=== PATIENT | male | born 1985 | race Caucasian/White ===

== ENCOUNTER 2019-01-23 15:52 | Emergency (ER) | payer SELFPAY ==
[2019-01-23 16:12] VITALS: BP 134/89
[2019-01-23] MEDS: Azithromycin TAB* 250 MG PO ONE (16:50)
--- NOTE | 2019-01-23 18:36 | UC ---
Complaint Male HPI - HPI Summary HPI Summary: ABOUT 1 WEEK OF PAIN IN HIS BLADDER AND BURNING WITH URINATION. DENIES FEVER, FREQUENCY, BACK PAIN, NAUSEA. DENIES PENILE DISCHARGE. STATES HIS EX- GIRLFRIEND CALLED HIM JUST PRIOR TO ONSET OF THE SYMPTOMS AND INFORMED HIM THAT SHE HAD BEEN DIAGNOSED WITH CHLAMYDIA. LAST SEXUAL CONTACT WITH HER WAS ABOUT 2 MONTHS AGO. - History of Current Complaint Chief Complaint: UCGU Stated Complaint: BLADDER PAIN Time Seen by Provider: 01/23/19 16:36 Hx Obtained From: Patient Onset/Duration: Gradual Onset, Lasting Days, Still Present Severity Initially: Moderate Severity Currently: Moderate Pain Intensity: 3 Pain Scale Used: 0-10 Numeric Location: Suprapubic Character: Sharp Aggravating Factor(s): Nothing Alleviating Factor(s): Nothing Associated Signs And Symptoms: Positive: Dysuria. Negative: Fever, Nausea, Penile Swelling, Penile Discharge - Allergies/Home Medications Allergies/Adverse Reactions: Allergies Allergy/AdvReac Type Severity Reaction Status Date / Time No Known Allergies Allergy Verified 01/23/19 16:12 PMH/Surg Hx/FS Hx/Imm Hx Previously Healthy: Yes - Surgical History Surgical History: Yes Surgery Procedure, Year, and Place: [id number] - Family History Known Family History: Positive: Non-Contributory - Social History Alcohol Use: None Substance Use Type: None Smoking Status (MU): Never Smoked Tobacco Review of Systems All Other Systems Reviewed And Are Negative: Yes Constitutional: Positive: Negative Skin: Positive: Negative Respiratory: Positive: Negative Cardiovascular: Positive: Negative Gastrointestinal: Positive: Negative Genitourinary: Positive: Dysuria, Vaginal/Penile Burning. Negative: Frequency, Urgency, Vaginal/Penile Discharge Physical Exam Triage Information Reviewed: Yes Appearance: Well-Appearing, No Pain Distress, Well-Nourished Vital Signs: Initial Vital Signs Temp 98.3 F 01/23/19 16:07 Pulse 59 01/23/19 16:07 Resp 16 01/23/19 16:07 BP 134/89 01/23/19 16:07 Pulse Ox 99 01/23/19 16:07 Laboratory Tests 01/23/19 16:18 POC Urine Color Yellow POC Urine Clarity Clear POC Urine pH 7.0 POC Ur Specif [place] 1.025 POC Urine Protein Negative POC Ur Glucose (UA) Negative POC Urine Ketones Negative POC Urine Blood Negative POC Urine Nitrite Negative POC Urine Bilirubin Negative POC Urine Urobilinogen 1.0 POC U Leukocyte Esteras Negative Eyes: Positive: Conjunctiva Clear ENT: Positive: Hearing grossly normal Neck: Positive: Supple Respiratory: Positive: No respiratory distress, No accessory muscle use Cardiovascular: Positive: Pulses Normal Abdomen Description: Positive: Soft Male Genital Exam: Positive: Other - DECLINED Musculoskeletal: Positive: No Edema Neurological: Positive: Alert Psychological: Positive: Age Appropriate Behavior Skin: Negative: Rashes Complaint Male Course/Dx - Course Course Of Treatment: PATIENT STATES HIS EX-GIRLFRIEND WAS DIAGNOSED WITH CHLAMYDIA. IS HERE FOR TESTING AND TREATMENT. URINE SENT FOR TESTING FOR GONORRHEA/CHLAMYDIA. PATIENT AGREES TO TREATMENT FOR CHLAMYDIA BUT DECLINES TREATMENT FOR GONORRHEA TODAY. 1 G OF AZITHROMYCIN AND SENT TO PHARMACY. URGENT RX PROVIDED. PATIENT DECLINED FURTHER STI TESTING DUE TO LACK OF INSURANCE. ADVISED TO GO TO [facility] FOR MORE COMPLETE TESTING. - Differential Dx/Diagnosis Provider Diagnosis: STD exposure Discharge ED - Sign-Out/Discharge Documenting (check all that apply): Patient Departure All imaging exams completed and their final reports reviewed: No Studies - Discharge Plan Condition: Stable Disposition: HOME Prescriptions: Azithromycin 1,000 mg PO ONCE #2 tab Patient Education Materials: Chlamydia (ED), Sexually Transmitted Diseases (ED) Referrals: [facility] [Outside] - If Needed Additional Instructions: TAKE THE 1 G OF AZITHROMYCIN PRESCRIBED. THIS WILL COVER FOR CHLAMYDIA BUT NOT GONORRHEA. YOUR URINE HAS BEEN SENT FOR TESTING FOR GONORRHEA AND CHLAMYDIA AND WE WILL CALL YOU WITH ANY ABNORMAL RESULTS. NO SEX FOR AT LEAST 7 DAYS. FOLLOW-UP AT [facility] FOR THE REMAINDER OF YOUR STD TESTING. USE BARRIER METHODS OF CONTRACEPTION EVERY TIME YOU HAVE SEX TO HELP PREVENT STI. [facility] [place] Address: [address] [place] [address] CALL THE NUMBER BELOW FOR ASSISTANCE IN ESTABLISHING WITH A PCP An additional resource available to assist in finding the appropriate physician for your health care needs is [facility] ([facility]). You may contact them by calling [phone]. - Billing Disposition and Condition Condition: STABLE Disposition: Home
[2019-01-24 14:02] LABS: Chlamydia trachomatis NAA Negative (Negative); Neisseria gonorrhoeae (GC) NAA Negative (Negative)
== END 2019-01-23 16:55 | disposition home or self-care (01) ==
LOC: UCEAST 15:52
DX: Z20.2 Contact with and (suspected) exposure to infections with a predominantly sexual mode of transmission (principal)
CPT/HCPCS: 81003; 87491; 87591; 99202; G0463